=== PATIENT | female | born 1965 | race Caucasian/White ===

== ENCOUNTER 2021-08-08 10:45 | Outpatient (CLI) | payer OTHER, SELFPAY ==
--- NOTE | ~2021-08-08 | US_ITS ---
EXAMINATION: US venous doppler [facility] DATE: 08/08/2021 11:35 INDICATION: Left lower limb pain TECHNIQUE: Grayscale ultrasound images without and with compression and Doppler ultrasound images of the bilateral lower extremity veins were obtained. COMPARISON: None. FINDINGS: The visualized portions of right common femoral vein, profunda (deep) femoral vein, femoral vein, pop liteal vein, posterior tibial veins, peroneal veins and gastrocnemius vein are patent. The right grea ter saphenous vein outflow demonstrates peripheral hypoechoic thrombus with linear echogenic margins which could be chronic. The visualized portions of left common femoral vein, profunda femoral vein, femoral vein, popliteal v ein, posterior tibial veins, peroneal veins, gastrocnemius vein and greater saphenous vein outflow ar e patent. IMPRESSION: 1. Age-indeterminate but potentially chronic nonocclusive thrombus within the right greater saphenou s vein outflow tract which is typically considered equivalent to deep venous thrombosis. No venous th rombosis in the deep veins proper of the right lower limb. 2. No deep venous thrombosis in the left lower limb. Reviewed, dictated and finalized at location A. IMPRESSION: 1. Age-indeterminate but potentially chronic nonocclusive thrombus within the right greater saphenous vein outflow tract which is typically considered equiva lent to deep venous thrombosis. No venous thrombosis in the deep veins proper o f the right lower limb. 2. No deep venous thrombosis in the left lower limb.
== END 2021-08-08 10:46 ==
LOC: MICIMG 10:46
PROVIDERS: PCP Family Medicine; Visit Provider Nurse Practitioner Family
DX: M79.605 Pain in left leg (principal)
CPT/HCPCS: 93970

== ENCOUNTER 2021-08-20 09:31 | Outpatient (CLI) | payer OTHER, SELFPAY ==
--- NOTE | ~2021-08-20 | XR_ITS ---
XR foot LT min 3V DATE: 08/20/2021 10:46 INDICATION: Bilateral foot deformity TECHNIQUE: 3 weightbearing views COMPARISON: None FINDINGS: Prominent hallux valgus and bunion deformity. Osteoarthritis at the first metatarsophalangeal joint. No fracture or dislocation, periosteal reaction or bone destruction is detected. 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
--- NOTE | ~2021-08-20 | XR_ITS ---
XR foot RT min 3V DATE: 08/20/2021 10:46 INDICATION: Bilateral foot deformity, generalized pain TECHNIQUE: 3 weightbearing views COMPARISON: None FINDINGS: There is prominent hallux valgus and bunion deformity. There is osteoarthritic arthritis at the first metatarsophalangeal joint. No fracture or dislocation, periosteal reaction or bone destruction. IMPRESSION: Prominent hallux valgus deformity Osteoarthritic arthritis at first metatarsophalangeal joint Reviewed, dictated and finalized at location B.
== END 2021-08-20 09:32 | disposition home or self-care (01) ==
PROVIDERS: PCP Family Medicine; Visit Provider Podiatrist
DX: M20.11 Hallux valgus (acquired), right foot (principal); M20.12 Hallux valgus (acquired), left foot
CPT/HCPCS: 73630

== ENCOUNTER → 2023-03-05 09:56 | Outpatient (CLI) | payer OTHER, SELFPAY ==
--- NOTE | ~2023-03-05 | US_ITS ---
EXAMINATION: US venous doppler [facility] DATE: 03/05/2023 11:58 INDICATION: Acute embolism and thrombosis in the lower extremities. TECHNIQUE: Grayscale ultrasound images without and with compression and Doppler ultrasound images of the bilateral lower extremity veins were obtained. COMPARISON: None. FINDINGS: The visualized portions of right common femoral vein, profunda (deep) femoral vein, femoral vein, pop liteal vein, posterior tibial veins, peroneal veins, soleal vein and gastrocnemius vein. Greater saph enous vein outflow are patent. Again seen is chronic noncompressible nearly occlusive thrombus at the right greater saphenous vein outflow. The visualized portions of left common femoral vein, profunda femoral vein, femoral vein, popliteal v ein, posterior tibial veins, peroneal veins, gastrocnemius vein and greater saphenous vein outflow ar e patent. IMPRESSION: 1. 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 No new thrombosis of the right lower extremity deep veins p [place]. 2. No deep venous thrombosis in the left lower limb. Reviewed, dictated and finalized at location A. IMPRESSION: 1. 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 No new thrombos is of the right lower extremity deep veins proper. 2. No deep venous thrombosis in the left lower limb.
== END ==
PROVIDERS: PCP Family Medicine; Visit Provider Nurse Practitioner Family
DX: I82.811 Embolism and thrombosis of superficial veins of right lower extremity (principal)
CPT/HCPCS: 93970

== ENCOUNTER 2025-01-18 15:05 | Outpatient (CLI) | payer SELFPAY ==
--- NOTE | ~2025-01-18 | XR_ITS ---
EXAMINATION: XR lumbar spine 2-3V DATE: 01/18/2025 15:45 INDICATION: Dorsalgia, unspecified. Low back pain. TECHNIQUE: 3 views of lumbar spine were obtained. COMPARISON: None. FINDINGS: Alignment is normal. Vertebral body heights are normal. There is mildly decreased disc heig ht at L4-L5 and L5-S1. There is multilevel facet joint osteoarthritis, severe in lower lumbar spine. IMPRESSION: 1. Mild lumbar spondylosis. Reviewed, dictated and finalized at location B. IMPRESSION: 1. Mild lumbar spondylosis.
== END 2025-01-18 15:06 | disposition home or self-care (01) ==
PROVIDERS: PCP Family Medicine
DX: M47.816 Spondylosis without myelopathy or radiculopathy, lumbar region (principal)
CPT/HCPCS: 72100